=== PATIENT | male | born 1990 | race African-American/Black ===

== ENCOUNTER 2020-04-08 17:32 | Emergency (ER) | payer BC, OTHER ==
[2020-04-08 17:46] VITALS: BP 126/72; PULSE 82; RESP 18; TEMP 98.1
[2020-04-08] MEDS ORDERED: SULFAMETH-TMP DS STARTER PACK 2 TAB BTL PO STA (18:27)
[2020-04-08] MEDS ORDERED: MUPIROCIN 2% OINT 22 GM TUBE TOPICAL STA (18:27)
[2020-04-08] MEDS ORDERED: SULFAMETHOX-TMP 800-160MG 1 EACH TAB PO STA (18:27)
--- NOTE | 2020-04-08 18:29 | ED ---
Skin/Abscess/FB HPI - General Chief complaint: Skin/Abscess/Foreign Body Stated complaint: Rash Time Seen by Provider: 04/08/20 17:59 Source: patient, RN notes reviewed, old records reviewed Mode of arrival: ambulatory Limitations: no limitations - History of Present Illness Initial comments: Physical 22-year-old male DF for evaluation of facial rash. Patient said rash around his mouth nose underneath his eyes kind of in line with where his mastoids of her mastoids at work. Does admit to some difficulty difficulties with sweats and persistent swelling. Patient states his face does feel mildly swollen with redness and worsening at times itchiness. MD complaint: rash, abscess/boil -: days(s) Tetanus Up to Date: yes Location: face Severity: mild Severity scale (1-10): 3 Quality: aching Consistency: constant Improves with: none Worsens with: none Context: new medication, recent illness Associated symptoms: itching Treatments Prior to Arrival: none - Related Data Previous Rx's Medication Instructions Recorded Sulfamethox-Tmp 800-160Mg [Bactrim 2 tab PO BID #40 tab 04/08/20 DS 800-160 mg] Allergies Allergy/AdvReac Type Severity Reaction Status Date / Time No Known Allergies Allergy Verified 04/08/20 17:45 Review of Systems ROS Statement: Those systems with pertinent positive or pertinent negative responses have been documented in the HPI. ROS Other: All systems not noted in ROS Statement are negative. Past Medical History Past Medical History: No Reported History History of Any Multi-Drug Resistant Organisms: None Reported Past Surgical History: Appendectomy, Joint Replacement Additional Past Surgical History / Comment(s): testicle removed Past Psychological History: No Psychological Hx Reported Smoking Status: Current every day smoker Past Alcohol Use History: Occasional Past Drug Use History: Marijuana General Exam - General Exam Comments Initial Comments: impetigo rash to face around mouth Limitations: no limitations General appearance: alert, in no apparent distress Head exam: Present: atraumatic, normocephalic, normal inspection Eye exam: Present: normal appearance, PERRL, EOMI. Absent: scleral icterus, conjunctival injection, periorbital swelling ENT exam: Present: normal exam, mucous membranes moist Neck exam: Present: normal inspection. Absent: tenderness, meningismus, lymphadenopathy Respiratory exam: Present: normal lung sounds bilaterally. Absent: respiratory distress, wheezes, rales, rhonchi, stridor Cardiovascular Exam: Present: regular rate, normal rhythm, normal heart sounds. Absent: systolic murmur, diastolic murmur, rubs, gallop, clicks GI/Abdominal exam: Present: soft, normal bowel sounds. Absent: distended, tenderness, guarding, rebound, rigid Extremities exam: Present: normal inspection, full ROM, normal capillary refill. Absent: tenderness, pedal edema, joint swelling, calf tenderness Back exam: Present: normal inspection Neurological exam: Present: alert, oriented X3, CN II-XII intact Psychiatric exam: Present: normal affect, normal mood Skin exam: Present: warm, dry, intact, normal color. Absent: rash Course Vital Signs 04/08/20 17:42 Temperature 98.1 F Pulse Rate 82 Respiratory 18 Rate Blood Pressure 126/72 O2 Sat by Pulse 100 Oximetry - Reevaluation(s) Reevaluation #1: medical record is reviewed patient symptoms siginficantly improved informed patient of results, questions answered and ok for discharge, Medical Decision Making - Medical Decision Making 30 male to ER with swelling moisture induced facial rash secondary impetigo reaction. Staff reaction. Patient placed on antibiotics and can be discharged Disposition Clinical Impression: Impetigo Disposition: HOME SELF-CARE Condition: Good Instructions (If sedation given, give patient instructions): Impetigo (ED) Prescriptions: Sulfamethox-Tmp 800-160Mg [Bactrim DS 800-160 mg] 2 tab PO BID #40 tab Is patient prescribed a controlled substance at d/c from ED?: No Referrals: Yao Blackwood DO [Primary Care Provider] - 1-2 days
== END 2020-04-08 18:58 | disposition home or self-care (01) ==
LOC: EC 17:32
DX: L01.00 Impetigo, unspecified (principal); F17.200 Nicotine dependence, unspecified, uncomplicated
CPT/HCPCS: 99283

== ENCOUNTER 2020-05-12 15:01 | Emergency (ER) | payer BC, OTHER ==
[2020-05-12 15:30] VITALS: RESP 18
[2020-05-12] MEDS ORDERED: PROPARACAINE 0.5% OPHTH DROPS 15 ML BTL LEFT EYE STA (15:40)
[2020-05-12] MEDS ORDERED: FLUORESCEIN STRIPS 1 MG STRIP LEFT EYE ONE (15:41)
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
--- NOTE | 2020-05-12 16:18 | CT ---
EXAMINATION TYPE: CT facial bones wo con DATE OF EXAM: 05/12/2020 COMPARISON: None HISTORY: Left eye bruising after injury CT DLP: 611.8 mGycm Automated exposure control for dose reduction was used. Images were obtained from the bottom of the mandible to the top of the frontal sinuses without contra st. There is depression of the floor of the left bony orbit. There is fluid level in the left maxillary s inus. There is blowout fracture of the floor of the left orbit with depression of the fragment 5 mm. There is also blowout fracture of the medial wall of the left bony orbit into the nasopharynx with fr agment herniation 7 mm. There is mucosal thickening and hemorrhage in the left side of the nasopharyn x at the superior nasal turbinate. The mandibular ring is intact. Temporomandibular joints appear normal. Zygomatic arches appear normal . Nasal bone appears intact. The globes are symmetric. There is no retro-orbital mass. IMPRESSION: There are blowout fractures of the medial wall and the inferior wall of the left orbit with displacem ent. Hemorrhage in the left maxillary sinus. Hemorrhage and debris in the left side nasopharynx.
[2020-05-12 17:53] VITALS: BP 131/84; PULSE 60; TEMP 98.2
== END 2020-05-12 17:53 | disposition home or self-care (01) ==
LOC: EC 15:01
DX: S02.32XA Fracture of orbital floor, left side, initial encounter for closed fracture (principal); S05.12XA Contusion of eyeball and orbital tissues, left eye, initial encounter; R04.89 Hemorrhage from other sites in respiratory passages; R04.1 Hemorrhage from throat; Y04.0XXA Assault by unarmed brawl or fight, initial encounter
CPT/HCPCS: 70486; 99283

== ENCOUNTER 2020-10-11 17:54 | Emergency (ER) | payer BC, OTHER ==
[2020-10-11 18:06] VITALS: TEMP 98.2
--- NOTE | 2020-10-11 18:27 | ED ---
ENT HPI - General Chief complaint: Dental/Oral Stated complaint: Tooth pain Time Seen by Provider: 10/11/20 18:07 Source: patient Mode of arrival: ambulatory Limitations: no limitations - History of Present Illness Initial comments: 30-year-old male presents to emergency Department with chief complaint ofdental pain. Patient reports incident and went on for approximately one week. He states he has an appointment in 2 weeks with a dentist. Patient reports he has been difficulties with his wisdom tooth for quite some time now. He denies any facial swelling, night sweats or chills. Denies any dysphagia or odontophagia or difficulty breathing. Reports taking [id number] analgesics but no significant improvement in symptoms.he states the pain is sharp. - Related Data Previous Rx's Medication Instructions Recorded Sulfamethox-Tmp 800-160Mg [Bactrim 2 tab PO BID #40 tab 04/08/20 DS 800-160 mg] Amoxicillin/Potassium Clav 1 tab PO Q12HR #20 tab 05/12/20 [Augmentin 875-125 Tablet] Amoxicillin/Potassium Clav 1 tab PO Q12HR #20 tab 10/11/20 [Augmentin 875-125 Tablet] Allergies Allergy/AdvReac Type Severity Reaction Status Date / Time No Known Allergies Allergy Verified 10/11/20 18:06 Review of Systems ROS Statement: Those systems with pertinent positive or pertinent negative responses have been documented in the HPI. ROS Other: All systems not noted in ROS Statement are negative. Past Medical History Past Medical History: No Reported History History of Any Multi-Drug Resistant Organisms: None Reported Past Surgical History: Appendectomy, Orthopedic Surgery Additional Past Surgical History / Comment(s): testicle removed Past Psychological History: No Psychological Hx Reported Smoking Status: Vaper Past Alcohol Use History: Occasional Past Drug Use History: Marijuana General Exam Limitations: no limitations General appearance: alert, in no apparent distress Head exam: Present: atraumatic, normocephalic, normal inspection Eye exam: Present: normal appearance, PERRL, EOMI Pupils: Present: normal accommodation ENT exam: Present: normal exam, normal oropharynx (partially chipped tooth #17. No signs of periapical abscess.), mucous membranes moist Neck exam: Present: normal inspection, full ROM. Absent: tenderness Respiratory exam: Present: normal lung sounds bilaterally. Absent: respiratory distress Cardiovascular Exam: Present: regular rate, normal rhythm, normal heart sounds Extremities exam: Present: normal inspection, full ROM, normal capillary refill. Absent: tenderness Back exam: Present: normal inspection, full ROM. Absent: tenderness, CVA tenderness (R), CVA tenderness (L) Neurological exam: Present: alert, oriented X3, normal gait Psychiatric exam: Present: normal affect, normal mood Skin exam: Present: warm, dry, intact, normal color Course Vital Signs 10/11/20 18:03 Temperature 98.2 F Pulse Rate 87 Respiratory 18 Rate Blood Pressure 145/90 O2 Sat by Pulse 99 Oximetry Procedures - Nerve Block Consent Obtained: verbal consent Local Anesthetic Used: LIDOCAINE 1% with EPI Amount of anesthesia used: 2 Side: left Intraoral Nerve Block: inferior alveolar Procedure Successful: Yes Complications: none Patient Tolerated Procedure: well, no complications Medical Decision Making - Medical Decision Making 22-year-old female presents to the emergency department with a chief complaint abdominal pain. on Physical examination, patient has a partially fractured tooth #17. No signs of periapical abscess.I administered a dental block which significantly previous symptoms. At discharge her with a Tylenol 3 starter pack and Augmentin. Patient was advised to follow with a dentist. Return parameters discussed the patient was understanding and agreeable. Case discussed with physician. Disposition Clinical Impression: Toothache Disposition: HOME SELF-CARE Condition: Stable Instructions (If sedation given, give patient instructions): Toothache (ED) Additional Instructions: follow with a dentist. Take prescribed medication as directed. Return to emergency department if symptoms worsen. Prescriptions: Amoxicillin/Potassium Clav [Augmentin 875-125 Tablet] 1 tab PO Q12HR #20 tab Is patient prescribed a controlled substance at d/c from ED?: No Referrals: Yao Blackwood DO [Primary Care Provider] - 1-2 days Time of Disposition: 19:00
[2020-10-11] MEDS ORDERED: AMOXIC-POT CLAV 875-125MG 1 EACH TAB PO STA (18:28)
[2020-10-11] MEDS ORDERED: ACET/COD 300 MG/30 MG STARTER PACK 6 TAB BTL PO STA (18:28)
[2020-10-11] MEDS ORDERED: LIDOCAINE 1%-EPI 1:100,000 20 ML VIAL SQ STA (18:28)
[2020-10-11 19:43] VITALS: BP 138/88; PULSE 78; RESP 20
== END 2020-10-11 19:15 | disposition home or self-care (01) ==
LOC: EC 17:54
DX: K08.89 Other specified disorders of teeth and supporting structures (principal); S02.5XXA Fracture of tooth (traumatic), initial encounter for closed fracture; F17.290 Nicotine dependence, other tobacco product, uncomplicated; X58.XXXA Exposure to other specified factors, initial encounter
CPT/HCPCS: 64400; 99282

== ENCOUNTER 2020-12-16 14:59 | Emergency (ER) | payer OTHER ==
[2020-12-16 16:26] VITALS: BP 134/87; PULSE 70; RESP 18; TEMP 97.5
--- NOTE | 2020-12-16 17:12 | XR ---
EXAMINATION TYPE: XR lumbar spine 2 or 3V DATE OF EXAM: 12/16/2020 COMPARISON: 03/12/2001 HISTORY: Low back pain TECHNIQUE: 3 views FINDINGS: The vertebra have normal alignment. There is bilateral L5 spondylolysis. There is no spondy lolisthesis. Disc spaces are normal. There is no compression fracture. Sacroiliac joints are intact. IMPRESSION: L5 spondylolysis which appears new compared to old exam. No acute fracture seen.
[2020-12-16] MEDS ORDERED: ACET/COD 300 MG/30 MG STARTER PACK 6 TAB BTL PO STA (18:31)
[2020-12-16] MEDS ORDERED: KETOROLAC 15 MG/ML 1 ML VIAL IM STA (18:31)
--- NOTE | 2020-12-16 18:32 | ED ---
Back Pain HPI - General Chief Complaint: Back Pain/Injury Stated Complaint: Back pain Time Seen by Provider: 12/16/20 18:18 Source: patient, RN notes reviewed Limitations: no limitations - History of Present Illness Initial Comments: 10-year-old male complaining of low back pain. He noted that he does have a history of an L5 fracture that he found out about approximately 1 year ago. 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 She noted that over the last 4-5 days he's had increased low back pain. He denied any weakness numbness tingling decreased range of motion strength bladder or bowel incontinence or retention. He denied any chest pain first breath headache nausea vomiting diarrhea constipation fever fatigue chills. - Related Data Previous Rx's Medication Instructions Recorded Sulfamethox-Tmp 800-160Mg [Bactrim 2 tab PO BID #40 tab 04/08/20 DS 800-160 mg] Amoxicillin/Potassium Clav 1 tab PO Q12HR #20 tab 05/12/20 [Augmentin 875-125 Tablet] Amoxicillin/Potassium Clav 1 tab PO Q12HR #20 tab 10/11/20 [Augmentin 875-125 Tablet] Allergies Allergy/AdvReac Type Severity Reaction Status Date / Time No Known Allergies Allergy Verified 12/16/20 16:26 Review of Systems ROS Statement: Those systems with pertinent positive or pertinent negative responses have been documented in the HPI. ROS Other: All systems not noted in ROS Statement are negative. Past Medical History Past Medical History: No Reported History History of Any Multi-Drug Resistant Organisms: None Reported Past Surgical History: Appendectomy, Orthopedic Surgery Additional Past Surgical History / Comment(s): testicle removed Past Psychological History: Anxiety Smoking Status: Former smoker, Vaper Past Alcohol Use History: Occasional Past Drug Use History: Marijuana General Exam Limitations: no limitations General appearance: alert, in no apparent distress Head exam: Present: atraumatic, normocephalic, normal inspection Eye exam: Present: normal appearance, PERRL, EOMI. Absent: scleral icterus, conjunctival injection, periorbital swelling Neck exam: Present: normal inspection. Absent: tenderness, meningismus, lymphadenopathy Respiratory exam: Present: normal lung sounds bilaterally. Absent: respiratory distress, wheezes, rales, rhonchi, stridor Cardiovascular Exam: Present: regular rate, normal rhythm, normal heart sounds. Absent: systolic murmur, diastolic murmur, rubs, gallop, clicks GI/Abdominal exam: Present: soft, normal bowel sounds. Absent: distended, tenderness, guarding, rebound, rigid Extremities exam: Present: normal inspection, full ROM, normal capillary refill. Absent: tenderness, pedal edema, joint swelling, calf tenderness Back exam: Present: normal inspection, tenderness (Over the low back) Neurological exam: Present: alert, oriented X3, CN II-XII intact Psychiatric exam: Present: normal affect, normal mood Skin exam: Present: warm, dry, intact, normal color. Absent: rash Course Vital Signs 12/16/20 16:23 Temperature 97.5 F L Pulse Rate 70 Respiratory 18 Rate Blood Pressure 134/87 O2 Sat by Pulse 100 Oximetry Medical Decision Making - Medical Decision Making 30-year-old male complaining of low back pain is worse over the last 4-5 days, history of an L5 fracture for approximately 1 year. 2 mg of Toradol, Tylenol 3 starter pack, x-ray of the lumbar spine ordered. Case discussed with Dr. Calderon, patient can discharge home with follow-up to orthopedics. Disposition Clinical Impression: L5 vertebral fracture, Low back pain Disposition: HOME SELF-CARE Condition: Stable Instructions (If sedation given, give patient instructions): Acute Low Back Pain (ED) Additional Instructions: Please return to the Emergency Department if symptoms worsen or any other concerns. Follow-up with orthopedics. Take Tylenol 3 as prescribed. Try to avoid any extra strenuous activity bending twisting. Is patient prescribed a controlled substance at d/c from ED?: No Referrals: Yao Blackwood DO [Primary Care Provider] - 1-2 days Hannah Garcia DO [Doctor of Osteopathic Medicine] - 1-2 days Time of Disposition: 18:32
== END 2020-12-16 19:20 | disposition home or self-care (01) ==
LOC: EC 14:59
DX: S32.059A Unspecified fracture of fifth lumbar vertebra, initial encounter for closed fracture (principal); M54.5 Low back pain; F17.200 Nicotine dependence, unspecified, uncomplicated; F12.90 Cannabis use, unspecified, uncomplicated; X50.9XXA Other and unspecified overexertion or strenuous movements or postures, initial encounter
CPT/HCPCS: 72100; 99283; 96372; J1885

== ENCOUNTER 2022-03-14 23:22 | Observation (INO) | payer OTHER ==
[2022-03-15] MEDS ORDERED: SODIUM CHLORIDE 0.9% 1,000 ML IV STA (00:03)
--- NOTE | 2022-03-15 00:07 | ED ---
Extremity Problem HPI - General Chief complaint: Extremity Problem,Nontraumatic Stated complaint: Pain all over Time Seen by Provider: 03/14/22 23:57 Source: patient, RN notes reviewed Mode of arrival: ambulatory Limitations: no limitations - History of Present Illness Initial comments: Patient complaining of generalized body aching, mostly in the feet and calf area. Patient also complaining of some discomfort in his shoulders. This is exacerbated by movement. Patient ended up walking here from [place]. Patient states this took about 3 days. He arrived about 36 hours ago. Patient states that he has been sore since. He denies any problems with chest pain or shortness of breath. No problems with urination. Patient denies any specific injury. No headache, no fever or chills, no changes in vision or hearing, no sore throat or difficulty with speech, no neck pain, no chest pain or shortness of breath, no abdominal pain, no nausea or vomiting, no changes in urination or bowel movements, no numbness or tingling, no skin rashes or lesions. - Related Data Previous Rx's Medication Instructions Recorded Sulfamethox-Tmp 800-160Mg [Bactrim 2 tab PO BID #40 tab 04/08/20 DS 800-160 mg] Amoxicillin/Potassium Clav 1 tab PO Q12HR #20 tab 05/12/20 [Augmentin 875-125 Tablet] Amoxicillin/Potassium Clav 1 tab PO Q12HR #20 tab 10/11/20 [Augmentin 875-125 Tablet] Allergies Allergy/AdvReac Type Severity Reaction Status Date / Time No Known Allergies Allergy Verified 03/14/22 23:27 Review of Systems ROS Statement: Those systems with pertinent positive or pertinent negative responses have been documented in the HPI. ROS Other: All systems not noted in ROS Statement are negative. Past Medical History Past Medical History: No Reported History Additional Past Medical History / Comment(s): covid History of Any Multi-Drug Resistant Organisms: None Reported Past Surgical History: Appendectomy, Orthopedic Surgery Additional Past Surgical History / Comment(s): testicle removed Past Psychological History: Anxiety Smoking Status: Former smoker, Vaper Past Alcohol Use History: Occasional Past Drug Use History: Marijuana General Exam - General Exam Comments Initial Comments: Cranial nerves II through XII grossly intact. No evidence of infectious process. Does not appear to be ill or toxic. Limitations: no limitations General appearance: alert, in no apparent distress Head exam: Present: atraumatic, normocephalic, normal inspection Eye exam: Present: normal appearance, PERRL, EOMI. Absent: scleral icterus, conjunctival injection, periorbital swelling ENT exam: Present: normal exam, mucous membranes moist, normal external ear exam. Absent: mucous membranes dry Neck exam: Present: normal inspection, full ROM. Absent: tenderness, meningismus, lymphadenopathy Respiratory exam: Present: normal lung sounds bilaterally. Absent: respiratory distress, wheezes, rales, rhonchi, stridor, chest wall tenderness, accessory muscle use, decreased breath sounds, prolonged expiratory Cardiovascular Exam: Present: regular rate, normal rhythm, normal heart sounds. Absent: systolic murmur, diastolic murmur, rubs, gallop, clicks GI/Abdominal exam: Present: soft, normal bowel sounds. Absent: distended, tenderness, guarding, rebound, rigid Extremities exam: Present: normal inspection, full ROM, tenderness (Patient does have some general tenderness to the bilateral trapezius area, bilateral, bilateral quadriceps muscles. No evidence of infectious process. No break in skin integrity. No joint effusion. Full range of motion. Pulses are 2+ out of 4.), normal capillary refill. Absent: pedal edema, joint swelling, calf tenderness Back exam: Present: normal inspection, full ROM. Absent: tenderness, muscle spasm, paraspinal tenderness, vertebral tenderness, rash noted Neurological exam: Present: alert, oriented X3, CN II-XII intact Psychiatric exam: Present: normal affect, normal mood Skin exam: Present: warm, dry, intact, normal color. Absent: rash Course Vital Signs 03/14/22 03/15/22 23:28 02:10 Temperature 98.4 F Pulse Rate 62 56 L Respiratory 16 18 Rate Blood Pressure 130/86 125/90 O2 Sat by Pulse 98 99 Oximetry - Reevaluation(s) Reevaluation #1: 03/15/22 02:16 Medical record is reviewed Symptoms are improved here in the emergency department Patient is informed of results and questions answered Patient in no distress - Consultations Consultation #1: Case discussed with the EPC from [facility]. Patient will be admitted for rhabdomyolysis. Medical Decision Making - Medical Decision Making Patient likely has muscle strains related to walking an extended distance with a backpack. This is some 55 miles of walking over a 3 day period. Of course rhabdomyolysis is within the differential. Compartments are soft. Does not appear to be consistent with any joint injury or compartment syndrome. 2 L fluid bolus in the ER. 150 mL per hour thereafter. 2 Amp of sodium bicarb. The case was discussed in detail with ED attending physician. Presentation, findings, treatment plan discussed in detail. Treating Engineer Dr. Aguiar - Lab Data Result diagrams: 03/15/22 00:24 03/15/22 00:24 Lab Results 03/15/22 03/15/22 Range/Units 00:24 00:24 WBC 5.7 (3.8-10.6) k/uL RBC 4.67 (4.30-5.90) m/uL Hgb 13.6 (13.0-17.5) gm/dL Hct 40.7 (39.0-53.0) % MCV 87.0 (80.0-100.0) fL MCH 29.2 (25.0-35.0) pg MCHC 33.6 (31.0-37.0) g/dL RDW 13.5 (11.5-15.5) % Plt Count 270 (150-450) k/uL MPV 7.0 Neutrophils % 56 % Lymphocytes % 32 % Monocytes % 5 % Eosinophils % 4 % Basophils % 2 % Neutrophils # 3.2 (1.3-7.7) k/uL Lymphocytes # 1.8 (1.0-4.8) k/uL Monocytes # 0.3 (0-1.0) k/uL Eosinophils # 0.2 (0-0.7) k/uL Basophils # 0.1 (0-0.2) k/uL Sodium 138 (137-145) mmol/L Potassium 3.4 L (3.5-5.1) mmol/L Chloride 102 (98-107) mmol/L Carbon Dioxide 30 (22-30) mmol/L Anion Gap 6 mmol/L BUN 14 (9-20) mg/dL Creatinine 0.79 (0.66-1.25) mg/dL Est GFR (CKD-EPI)AfAm >90 (>60 ml/min/1.73 sqM) Est GFR (CKD-EPI)NonAf >90 (>60 ml/min/1.73 sqM) Glucose 126 H (74-99) mg/dL Calcium 9.4 (8.4-10.2) mg/dL Total Bilirubin 0.8 (0.2-1.3) mg/dL AST 101 H (17-59) U/L ALT 36 (4-49) U/L Alkaline Phosphatase 77 (38-126) U/L Creatine Kinase 4348 H* (55-170) U/L Total Protein 7.3 (6.3-8.2) g/dL Albumin 4.4 (3.5-5.0) g/dL Disposition Clinical Impression: Rhabdomyolysis, Hypokalemia Disposition: ADMITTED IP TO THIS [facility] Condition: Stable Is patient prescribed a controlled substance at d/c from ED?: No Referrals: Yao Blackwood DO [Primary Care Provider] - 1-2 days Time of Disposition: 02:00 Decision to Admit Reason: Admit from EC Decision Time: 02:00
[2022-03-15 00:34] LABS: Basophils # (A) 0.1 k/uL (0-0.2); Basophils % (A) 2 %; Eosinophils # (A) 0.2 k/uL (0-0.7); Eosinophils % (A) 4 %; HCT 40.7 % (39.0-53.0); HGB 13.6 gm/dL (13.0-17.5); Lymphocytes # (A) 1.8 k/uL (1.0-4.8); Lymphocytes % (A) 32 %; MCH 29.2 pg (25.0-35.0); MCHC 33.6 g/dL (31.0-37.0); Monocytes # (A) 0.3 k/uL (0-1.0); Monocytes % (A) 5 %; Neutrophils # (A) 3.2 k/uL (1.3-7.7); Neutrophils % (A) 56 %; Platelet Count 270 k/uL (150-450); RBC 4.67 m/uL (4.30-5.90); RDW 13.5 % (11.5-15.5); WBC 5.7 k/uL (3.8-10.6)
[2022-03-15 00:45] LABS: ALT 36 U/L (4-49); AST 101 U/L (17-59); African American GFR (CKD) >90 (>60 ml/min/1.73 sqM); Albumin 4.4 g/dL (3.5-5.0); Alkaline Phosphatase 77 U/L (38-126); Anion Gap 6 mmol/L; Blood Urea Nitrogen 14 mg/dL (9-20); Calcium 9.4 mg/dL (8.4-10.2); Carbon Dioxide 30 mmol/L (22-30); Chloride 102 mmol/L (98-107); Glucose 126 mg/dL (74-99); Non-African American GFR(CKD) >90 (>60 ml/min/1.73 sqM); Potassium 3.4 mmol/L (3.5-5.1); Sodium 138 mmol/L (137-145); Total Bilirubin 0.8 mg/dL (0.2-1.3); Total Protein 7.3 g/dL (6.3-8.2)
[2022-03-15] MEDS ORDERED: POTASSIUM CHLORIDE ER 20 MEQ TAB.ER PO STA (01:48)
[2022-03-15 01:56] LABS: Creatine Kinase 4348 U/L (55-170)
[2022-03-15] MEDS ORDERED: SODIUM CHLORIDE 0.9% 1,000 ML IV ONE (01:59)
[2022-03-15] MEDS ORDERED: ONDANSETRON 4 MG/2 ML VIAL IVP PRN (02:10)
[2022-03-15] MEDS ORDERED: MORPHINE SULFATE 4 MG/ML SYRINGE IV PRN (02:10)
[2022-03-15] MEDS ORDERED: ACETAMINOPHEN TAB 325 MG TAB PO PRN (02:10)
[2022-03-15] MEDS ORDERED: NALOXONE 0.4 MG/ML 1 ML VIAL IV PRN (02:10)
[2022-03-15 03:23] LABS: Appearance,Urine Clear (Clear); Bacteria,Urine Rare /hpf; Bilirubin,Urine Negative (Negative); Blood,Urine Negative (Negative); Color,Urine Yellow; Glucose,Urine (UA) Negative (Negative); Hyaline Casts,Urine 8 /lpf (0-2); Ketones,Urine 1+ (Negative); Leukocyte Esterase,Urine Negative (Negative); Mucus,Urine Many /hpf; Nitrite,Urine Negative (Negative); PH, Urine 5.5 (5.0-8.0); Protein,Urine 1+ (Negative); RBC,Urine 1 /hpf (0-5); Specific Gravity,Urine 1.031 (1.001-1.035); Urobilinogen,Urine <2.0 mg/dL (<2.0); WBC,Urine 8 /hpf (0-5)
[2022-03-15] MEDS: SODIUM CHLORIDE 0.9% 1,000 ML with SODIUM BICARB (1 MEQ/ML) 100 ML IV SCH ×4 (05:50→07:23)
[2022-03-15 07:12] LABS: Glucose,Whole Blood 124 mg/dL (70-110)
[2022-03-15 07:33] LABS: Phosphorus 3.5 mg/dL (2.5-4.5)
[2022-03-15 08:14] LABS: ALT 29 U/L (4-49); AST 68 U/L (17-59); African American GFR (CKD) >90 (>60 ml/min/1.73 sqM); Albumin 3.6 g/dL (3.5-5.0); Albumin/Globulin Ratio 1.4; Alkaline Phosphatase 69 U/L (38-126); Anion Gap 3 mmol/L; Blood Urea Nitrogen 12 mg/dL (9-20); Calcium 8.6 mg/dL (8.4-10.2); Carbon Dioxide 29 mmol/L (22-30); Chloride 107 mmol/L (98-107); Creatine Kinase 2480 U/L (55-170); Globulin 2.6 g/dL; Glucose 111 mg/dL (74-99); Magnesium 1.9 mg/dL (1.6-2.3); Non-African American GFR(CKD) >90 (>60 ml/min/1.73 sqM); Potassium 4.4 mmol/L (3.5-5.1); Sodium 139 mmol/L (137-145); Total Bilirubin 0.7 mg/dL (0.2-1.3); Total Protein 6.2 g/dL (6.3-8.2)
[2022-03-15 08:59] VITALS: RESP 16
[2022-03-15] MEDS ORDERED: MAGNESIUM SULFATE-D5W PMX 1 GM in DEXTROSE/WATER 1 100ML.BAG IVPB ONE (12:25)
--- NOTE | 2022-03-15 12:29 | P.HPIM ---
History of Present Illness H&P Date: 03/15/22 This is a 32-year-old male presents to the emergency room with concern for muscle weakness and aching after walking by foot carrying a heavy backpack from [place] to [place] over a three-day period. He denies any chest pain, shortness of breath, cough. His main complaint is muscle weakness and aching in the calf and foot and along his achilles tendon. Patient does not have transportation and has walked this way to see family in the area. His blood count was unremarkable, on admission his potassium was found to be 3.4 this is improved at 4.4 after supplementation. Magnesium level today is 1.9. On admission his creatinine kinase was found to be 4348 and is now down to 2480. Blood glucose is slightly elevated in the 120s to showing 1+ ketones in his urine as well as mild proteinuria. He is afebrile, heart rate in the 50s, blood pressure 114/72, 100% on room air. No significant medical history he reports occasional drinking, he is a former smoker. Patient admitted for monitoring and trending creatine kinase. Patient is receiving hydration on bicarb gtt which has been adjusted to normal saline. REVIEW OF SYSTEMS: CONSTITUTIONAL: No fever, no malaise, no fatigue. HEENT: No recent visual problems or hearing problems. Denied any sore throat. CARDIOVASCULAR: No chest pain, orthopnea, PND, no palpitations, no syncope. PULMONARY: No shortness of breath, no cough, no hemoptysis. GASTROINTESTINAL: No diarrhea, no nausea, no vomiting, no abdominal pain. NEUROLOGICAL: No headaches, no weakness, no numbness. HEMATOLOGICAL: Denies any bleeding or petechiae. GENITOURINARY: Denies any burning micturition, frequency, or urgency. MUSCULOSKELETAL/RHEUMATOLOGICAL: Reports ankle aching bilaterally ENDOCRINE: Denies any polyuria or polydipsia. The rest of the 14-point review of systems is negative. PHYSICAL EXAMINATION: GENERAL: The patient is alert and oriented x3, not in any acute distress. Well developed, well nourished. HEENT: Pupils are round and equally reacting to light. EOMI. No scleral icterus. No conjunctival pallor. Normocephalic, atraumatic. No pharyngeal erythema. No thyromegaly. CARDIOVASCULAR: S1 and S2 present. No murmurs, rubs, or gallops. PULMONARY: Chest is clear to auscultation, no wheezing or crackles. ABDOMEN: Soft, nontender, nondistended, normoactive bowel sounds. No palpable organomegaly. MUSCULOSKELETAL: No joint swelling or deformity. EXTREMITIES: No cyanosis, clubbing, or pedal edema. NEUROLOGICAL: Gross neurological examination did not reveal any focal deficits. SKIN: No rashes. Assessment plan Assessment Generalized muscle weakness and aching Acute mild rhabdomyolysis Elevated LFT secondary to above Hyperglycemia Hypokalemia secondary to dehydration, improved with supplementation History anxiety Former smoker GI prophylaxis DVT prophylaxis Full code Plan Continue with IV hydration 1 Gram IVPB magnesium ordered Patient can be discharged later on today A1C pending this can be followed outpatient Repeat labs outpatient The impression and plan of care has been dictated by Oxana Sanabria Nurse Practitioner as directed. Dr. Mik MD I have performed a history and physical examination and medical decision making of this patient, discussed the same with the dictator, and agree with the dictators assessment and plan as written, documented as a scribe. Based on total visit time, I have performed more than 50% of this visit. Past Medical History Past Medical History: No Reported History Additional Past Medical History / Comment(s): covid, pt reports in 2020 History of Any Multi-Drug Resistant Organisms: None Reported Past Surgical History: Appendectomy, Orthopedic Surgery Additional Past Surgical History / Comment(s): testicle removed Past Psychological History: Anxiety Smoking Status: Former smoker, Vaper Past Alcohol Use History: Occasional Additional Past Alcohol Use History / Comment(s): patient reports occasional drinking, possibly once a week or every other week Past Drug Use History: Marijuana Medications and Allergies Home Medications Medication Instructions Recorded Confirmed Type Clotrimazole/Betameth Cream 1 applic TOPICAL BID 03/15/22 03/15/22 History [Lotrisone] Allergies Allergy/AdvReac Type Severity Reaction Status Date / Time No Known Allergies Allergy Verified 03/15/22 11:39 Physical Exam Vitals: Vital Signs Temp Pulse Pulse Resp BP BP Pulse Ox 03/15/22 08:00 98.4 F 50 L 16 114/72 100 03/15/22 06:00 98.5 F 52 L 12 117/59 100 03/15/22 05:49 61 18 111/69 99 03/15/22 02:10 56 L 18 125/90 99 03/14/22 23:28 98.4 F 62 16 130/86 98 Intake and Output 03/14/22 03/15/22 03/15/22 22:59 06:59 14:59 Intake Total 590 350 Balance 590 350 Intake: Oral 590 350 Other: Voiding Method Toilet Toilet Weight 55.792 kg Results CBC & Chem 7: 03/15/22 00:24 03/15/22 06:54 Labs: Abnormal Lab Results - Last 24 Hours (Table) 03/15/22 03/15/22 03/15/22 Range/Units 00:24 02:30 06:54 Potassium 3.4 L (3.5-5.1) mmol/L Glucose 126 H 111 H (74-99) mg/dL POC Glucose (mg/dL) (70-110) mg/dL AST 101 H 68 H (17-59) U/L Creatine Kinase 4348 H* 2480 H* (55-170) U/L Total Protein 6.2 L (6.3-8.2) g/dL Urine Protein 1+ H (Negative) Urine Ketones 1+ H (Negative) Urine WBC 8 H (0-5) /hpf Urine Bacteria Rare H (None) /hpf Hyaline Casts 8 H (0-2) /lpf Urine Mucus Many H (None) /hpf 03/15/22 Range/Units 07:10 Potassium (3.5-5.1) mmol/L Glucose (74-99) mg/dL POC Glucose (mg/dL) 124 H (70-110) mg/dL AST (17-59) U/L Creatine Kinase (55-170) U/L Total Protein (6.3-8.2) g/dL Urine Protein (Negative) Urine Ketones (Negative) Urine WBC (0-5) /hpf Urine Bacteria (None) /hpf Hyaline Casts (0-2) /lpf Urine Mucus (None) /hpf Thrombosis Risk Factor Assmnt - Choose All That Apply Any of the Below Risk Factors Present?: No Other Risk Factors: No Other congenital or acquired thrombophilia - If yes, enter type in comment: No Thrombosis Risk Factor Assessment Level: Very Low Risk Assessment and Plan Time with Patient: Less than 30
[2022-03-15] MEDS: SODIUM CHLORIDE 0.9% 1,000 ML IV SCH ×2 (12:54→17:50)
[2022-03-15 13:43] VITALS: BP 128/84; PULSE 65; TEMP 98.3
--- NOTE | 2022-03-15 14:14 | P.DS ---
Providers Date of admission: 03/15/22 04:31 Attending physician: Dayna Houser Primary care physician: Yao Blackwood [facility] Course: Final Diagnosis Generalized muscle weakness and aching Acute mild rhabdomyolysis Elevated LFT secondary to above Hyperglycemia Hypokalemia secondary to dehydration, improved with supplementation History anxiety Former smoker Discharge Disposition Patient stable for discharge from hospital and will repeat creatine kinase in 2- 3 days outpatient. He is instructed to follow up with PCP in 2-3 days. Hospital course This is a pleasant 32-year-old male with medical history of appendectomy, testicle removal, former smoker. He presents to the hospital with complaints of muscle aching and cramping in his feet/ankle. He reports to walking by foot from [place] to [facility] over a course of 3 days in order to see his family. He currently does not have other transportation. He was found to be in mild acute rhabdomyolysis with creatine kinase on admission of 4348. He was given hydration on bicarb gtt and his CK improved to 2480. He was also mildly hypokalemic which improved with oral supplementation. He denies chest pain, cough, shortness of breath. He will be discharged after finishing IV hydration with normal saline and also will receive 1 gram of IV magnesium as his level as found to be 1.9. His blood count is unremarkable. Lungs are clear, S1 S2 auscultated, his abdomen is soft and nontender. He is alert and oriented and focal neurological exam is negative. Please see medical H & P for additional information. Thank you for allowing us to participate in the care of this patient. The impression and plan of care has been dictated by Oxana Sanabria, Nurse Practitioner as directed. Dr. Mik MD I have performed a history and physical examination and medical decision making of this patient, discussed the same with the dictator, and agree with the dictators assessment and plan as written, documented as a scribe. Based on total visit time, I have performed more than 50% of this visit. Patient Condition at Discharge: Stable Plan - Discharge Summary New Discharge Prescriptions: New Acetaminophen Tab [Tylenol] 650 mg PO Q6HR PRN tab PRN Reason: Mild Pain Or Fever > 100.5 Continue Clotrimazole/Betameth Cream [Lotrisone] 1 applic TOPICAL BID Discharge Medication List Acetaminophen Tab [Tylenol] 650 mg PO Q6HR PRN tab 03/15/22 [Rx] Clotrimazole/Betameth Cream [Lotrisone] 1 applic TOPICAL BID 03/15/22 [History] Follow up Appointment(s)/Referral(s): Yao Blackwood DO [Primary Care Provider] - 1-2 days Ambulatory/Diagnostic Orders: Miscellaneous Lab Order [LAB.AMB] Time Frame: 3 Days, Location: None Selected Patient Instructions/Handouts: Rhabdomyolysis (DC) Discharge Disposition: HOME SELF-CARE
== END 2022-03-15 19:10 | disposition home or self-care (01) ==
LOC: EC 23:22 → 4SSUR 03-15 04:31 → INTOOBSV 03-15 04:31 → 4SSUR 03-15 05:14 → UNDODISIN 03-15 19:10
PROVIDERS: ADMIT Internal Medicine; ATTEND Internal Medicine
DX: M62.82 Rhabdomyolysis (principal); E87.6 Hypokalemia; E86.0 Dehydration; R73.9 Hyperglycemia, unspecified; F41.9 Anxiety disorder, unspecified; F17.290 Nicotine dependence, other tobacco product, uncomplicated; Z90.79 Acquired absence of other genital organ(s); Z86.16 Personal history of COVID-19; Z90.49 Acquired absence of other specified parts of digestive tract; Z98.890 Other specified postprocedural states
CPT/HCPCS: 96361 ×2; 96366; 96375; 96365; 99284; 36415; 80053; 82550; 83735; 84100; 85025; 81001; G0378; J3475

== ENCOUNTER 2022-03-16 01:36 | Emergency (ER) | payer OTHER ==
[2022-03-16 01:41] VITALS: BP 110/65; PULSE 58; RESP 16; TEMP 97.2
[2022-03-16] MEDS ORDERED: ORPHENADRINE 30 MG/ML 2 ML VIAL IVP STA (01:53)
[2022-03-16] MEDS ORDERED: SODIUM CHLORIDE 0.9% 1,000 ML IV ONE (01:53)
[2022-03-16] MEDS ORDERED: ACETAMINOPHEN TAB 500 MG TAB PO STA (01:54)
--- NOTE | 2022-03-16 01:57 | ED ---
General Adult HPI - General Source: patient, RN notes reviewed Mode of arrival: ambulatory Limitations: no limitations <Jerry Beltran - Last Filed: 03/16/22 03:03> <Michael Aguiar - Last Filed: 03/16/22 03:46> - General Chief complaint: Extremity Injury, Lower Stated complaint: Leg Pain Time Seen by Provider: 03/16/22 01:42 - History of Present Illness Initial comments: This is a pleasant 32-year-old male presents for bilateral leg pain again. Patient states that he was going to get a hotel with his brother ended up not being able to get a room. Patient had to do walking for several 100 m. Patient states that after he did this he is an Achilles tendon areas were inflamed again. I am muscle soreness. Patient was admitted here yesterday for rhabdomyolysis. He was sent home after the creatinine kinase had improved. Patient was also found to be hypomagnesemic and mildly hypokalemic. These were corrected. Patient was sent home on Tylenol. Patient denying any subsequent injury. No headache, no fever or chills, no changes in vision or hearing, no sore throat or difficulty with speech, no neck pain, no chest pain or shortness of breath, no abdominal pain, no nausea or vomiting, no changes in urination or bowel movements, no numbness or tingling, , no skin rashes or lesions. The patient tells me he hasn't had time to hydrate since being discharged early in the evening (Jerry Beltran) - Related Data Home Medications Medication Instructions Recorded Confirmed Clotrimazole/Betameth Cream 1 applic TOPICAL BID 03/15/22 03/15/22 [Lotrisone] Previous Rx's Medication Instructions Recorded Acetaminophen Tab [Tylenol] 650 mg PO Q6HR PRN tab 03/15/22 Allergies Allergy/AdvReac Type Severity Reaction Status Date / Time No Known Allergies Allergy Verified 03/16/22 01:37 Review of Systems ROS Other: All systems not noted in ROS Statement are negative. <Jerry Beltran - Last Filed: 03/16/22 03:03> ROS Other: All systems not noted in ROS Statement are negative. <Michael Aguiar - Last Filed: 03/16/22 03:46> ROS Statement: Those systems with pertinent positive or pertinent negative responses have been documented in the HPI. Past Medical History Past Medical History: No Reported History Additional Past Medical History / Comment(s): covid, pt reports in 2020 History of Any Multi-Drug Resistant Organisms: None Reported Past Surgical History: Appendectomy, Orthopedic Surgery Additional Past Surgical History / Comment(s): testicle removed Past Psychological History: Anxiety Smoking Status: Former smoker, Vaper Past Alcohol Use History: Occasional Past Drug Use History: Marijuana <Jerry Beltran - Last Filed: 03/16/22 03:03> General Exam Limitations: no limitations General appearance: alert, in no apparent distress Head exam: Present: atraumatic, normocephalic, normal inspection Eye exam: Present: normal appearance, PERRL, EOMI. Absent: scleral icterus, conjunctival injection, periorbital swelling ENT exam: Present: normal exam, mucous membranes moist Neck exam: Present: normal inspection, full ROM. Absent: tenderness, meningismus, lymphadenopathy Respiratory exam: Present: normal lung sounds bilaterally. Absent: respiratory distress, wheezes, rales, rhonchi, stridor Cardiovascular Exam: Present: regular rate, normal rhythm, normal heart sounds. Absent: systolic murmur, diastolic murmur, rubs, gallop, clicks GI/Abdominal exam: Present: soft, normal bowel sounds. Absent: distended, tenderness, guarding, rebound, rigid Extremities exam: Present: normal inspection, full ROM, tenderness (Patient bilateral calf and quadriceps tenderness. The left wrist and some tenderness and trapezius area.), normal capillary refill. Absent: pedal edema, joint swelling, calf tenderness Back exam: Present: normal inspection, full ROM Neurological exam: Present: alert, oriented X3, CN II-XII intact Psychiatric exam: Present: normal affect, normal mood Skin exam: Present: warm, dry, intact, normal color. Absent: rash <Jerry Beltran - Last Filed: 03/16/22 03:03> Course Vital Signs 03/16/22 01:37 Temperature 97.2 F L Pulse Rate 58 L Respiratory 16 Rate Blood Pressure 110/65 O2 Sat by Pulse 98 Oximetry Medical Decision Making <Jerry Beltran - Last Filed: 03/16/22 03:03> - Lab Data Result diagrams: 03/16/22 02:43 <Michael Aguiar - Last Filed: 03/16/22 03:46> - Medical Decision Making Given that the patient had rhabdomyolysis, going to hydrate the patient again and rechecked the cranial kinase at this time. We'll also recheck her magnesium potassium. Muscle relaxer ordered. Tylenol ordered. Plan for discharge. Patient was told to return to the ER for any signs or symptoms worsen. Told to return immediately if any other problems arise. All questions answered. Treatment plan discussed. Patient in agreement Every effort has been made to ensure accuracy of this dictation. However, due to the limitations of electronic medical records and dictation devices, errors in charting still occur. The case was discussed in detail with ED attending physician. Presentation, findings, treatment plan discussed in detail. Dr. Aguiar--assumed care (Jerry Beltran) - Lab Data Lab Results 03/16/22 Range/Units 02:43 Sodium 137 (137-145) mmol/L Potassium 4.9 (3.5-5.1) mmol/L Chloride 107 (98-107) mmol/L Carbon Dioxide 21 L (22-30) mmol/L Anion Gap 9 mmol/L BUN 15 (9-20) mg/dL Creatinine 0.78 (0.66-1.25) mg/dL Est GFR (CKD-EPI)AfAm >90 (>60 ml/min/1.73 sqM) Est GFR (CKD-EPI)NonAf >90 (>60 ml/min/1.73 sqM) Glucose 84 (74-99) mg/dL Calcium 8.9 (8.4-10.2) mg/dL Magnesium 2.0 (1.6-2.3) mg/dL Creatine Kinase 1564 H* (55-170) U/L Disposition <Jerry Beltran - Last Filed: 03/16/22 03:03> Is patient prescribed a controlled substance at d/c from ED?: No <Michael Aguiar - Last Filed: 03/16/22 03:46> Clinical Impression: Rhabdomyolysis, Bilateral leg pain Disposition: HOME SELF-CARE Condition: Good Instructions (If sedation given, give patient instructions): Leg Pain (ED) Referrals: Yao Blackwood DO [Primary Care Provider] - 1-2 days
[2022-03-16 03:10] LABS: African American GFR (CKD) >90 (>60 ml/min/1.73 sqM); Anion Gap 9 mmol/L; Blood Urea Nitrogen 15 mg/dL (9-20); Calcium 8.9 mg/dL (8.4-10.2); Carbon Dioxide 21 mmol/L (22-30); Chloride 107 mmol/L (98-107); Glucose 84 mg/dL (74-99); Non-African American GFR(CKD) >90 (>60 ml/min/1.73 sqM); Sodium 137 mmol/L (137-145)
[2022-03-16] MEDS ORDERED: ZIPRASIDONE 20 MG VIAL IM STA (03:13)
[2022-03-16 03:42] LABS: Creatine Kinase 1564 U/L (55-170)
[2022-03-16 03:43] LABS: Potassium 4.9 mmol/L (3.5-5.1)
[2022-03-16] MEDS ORDERED: KETOROLAC 15 MG/ML 1 ML VIAL IVP STA (03:51)
[2022-03-16] MEDS ORDERED: IBUPROFEN 600 MG STARTER PACK 4 TAB BTL PO STA (03:51)
== END 2022-03-16 03:59 | disposition home or self-care (01) ==
LOC: EC 01:36
DX: M62.82 Rhabdomyolysis (principal); Z87.891 Personal history of nicotine dependence; Z86.16 Personal history of COVID-19
CPT/HCPCS: 36415; 80048; 82550; 83735; 99283; 96374; 96361; J2360

== ENCOUNTER 2022-04-09 22:56 | Emergency (ER) | payer OTHER ==
[2022-04-09 23:31] VITALS: BP 154/98; PULSE 55; RESP 20; TEMP 98.3
[2022-04-10] MEDS ORDERED: BACITRACIN OINT 1 EACH PACKET TOPICAL ONE (00:46)
[2022-04-10] MEDS ORDERED: FLUCONAZOLE 150 MG TAB PO STA (01:21)
--- NOTE | 2022-04-10 01:27 | ED ---
General Adult HPI - General Chief complaint: ENT Stated complaint: foot issues, nose issues Time Seen by Provider: 04/10/22 00:12 Source: patient, RN notes reviewed Mode of arrival: ambulatory Limitations: no limitations - History of Present Illness Initial comments: This is a 32-year-old male who presents to the emergency department for evaluation of abnormal appearance of bilateral feet after spending the day in wet shoes and socks. States he has a blister on his right great toe and loose toenails on both feet. Also complains of a scab on the left nare which he states is tender to touch. No known injury. Denies fever, chills, headache, chest pain, shortness of breath, abdominal pain, nausea, vomiting, diarrhea, or dysuria. - Related Data Home Medications Medication Instructions Recorded Confirmed Clotrimazole/Betameth Cream 1 applic TOPICAL BID 03/15/22 03/15/22 [Lotrisone] Previous Rx's Medication Instructions Recorded Acetaminophen Tab [Tylenol] 650 mg PO Q6HR PRN tab 03/15/22 Fluconazole [Diflucan] 150 mg PO ONCE #2 tab 04/10/22 Allergies Allergy/AdvReac Type Severity Reaction Status Date / Time No Known Allergies Allergy Verified 04/09/22 23:31 Review of Systems ROS Statement: Those systems with pertinent positive or pertinent negative responses have been documented in the HPI. ROS Other: All systems not noted in ROS Statement are negative. Past Medical History Past Medical History: No Reported History Additional Past Medical History / Comment(s): covid, pt reports in 2020 History of Any Multi-Drug Resistant Organisms: None Reported Past Surgical History: Appendectomy, Orthopedic Surgery Additional Past Surgical History / Comment(s): testicle removed Past Psychological History: Anxiety Smoking Status: Former smoker, Vaper Past Alcohol Use History: Occasional Past Drug Use History: Marijuana General Exam Limitations: no limitations (Well-developed, well-nourished male in no acute distress. Initial temperature 98.3, pulse 55, respirations 20, blood pressure 154/98, pulse ox 100% on room air.) General appearance: alert, in no apparent distress ENT exam: Present: normal oropharynx, mucous membranes moist, other (Small abrasion that appears to be scabbed over on the medial aspect of the left nare. ) Respiratory exam: Present: normal lung sounds bilaterally. Absent: respiratory distress, wheezes, rales, rhonchi, stridor Cardiovascular Exam: Present: regular rate, normal rhythm, normal heart sounds. Absent: systolic murmur, diastolic murmur, rubs, gallop, clicks GI/Abdominal exam: Present: soft, normal bowel sounds. Absent: distended, tenderness, guarding, rebound, rigid Extremities exam: Present: full ROM, normal capillary refill, other (Bilateral feet appear to have had prolonged exposure to moisture. Toenails are loose from the nail bed on second digits of bilateral feet. There is evidence of a blister that has ruptured on the right great toe.). Absent: tenderness, pedal edema Neurological exam: Present: alert, oriented X3, CN II-XII intact Psychiatric exam: Present: normal affect, normal mood Course Vital Signs 04/09/22 23:28 Temperature 98.3 F Pulse Rate 55 L Respiratory 20 Rate Blood Pressure 154/98 O2 Sat by Pulse 100 Oximetry Medical Decision Making - Medical Decision Making This is a 32-year-old male who presents to the emergency department for evaluation of abnormal appearance to his feet and an abrasion on his nose. Physical exam findings are overall unremarkable. There is the appearance of tinea pedis bilaterally. Onychomycosis bilaterally. Given Diflucan for treatment. Has a small abrasion on his nose to which bacitracin was applied. Discussed hygiene and foot care. Instructed to follow up with PCP as needed. Return parameters discussed in detail. Patient verbalizes understanding and agrees with this plan. Attending: Shashi. Disposition Clinical Impression: Abrasion of nose, Onychomycosis Disposition: HOME SELF-CARE Condition: Stable Instructions (If sedation given, give patient instructions): Athlete's Foot (ED) Additional Instructions: Take prescribed medication in one week. Change your socks frequently. Avoid prolonged exposure to excess moisture on feet. Applied triple antibiotic ointment to open area on the nose. Follow-up with PCP for a recheck next week. Return to the emergency department with any new, worsening, or concerning symptoms. Prescriptions: Fluconazole [Diflucan] 150 mg PO ONCE #2 tab Is patient prescribed a controlled substance at d/c from ED?: No Referrals: Yao Blackwood DO [Primary Care Provider] - 1-2 days Time of Disposition: 01:26
== END 2022-04-10 02:18 | disposition home or self-care (01) ==
LOC: EC 22:56
DX: S00.31XA Abrasion of nose, initial encounter (principal); B35.1 Tinea unguium; F41.9 Anxiety disorder, unspecified; F17.290 Nicotine dependence, other tobacco product, uncomplicated; F12.90 Cannabis use, unspecified, uncomplicated; Z79.899 Other long term (current) drug therapy; X31.XXXA Exposure to excessive natural cold, initial encounter
CPT/HCPCS: 99283